=== PATIENT | male | born 1990 | race Caucasian/White ===

== ENCOUNTER 2016-08-27 18:31 | Emergency (ER) | payer SELFPAY ==
[2016-08-27 19:33] VITALS: BP 127/72
== END 2016-08-27 19:33 | disposition home or self-care (01) ==
LOC: ED 18:31
DX: L30.9 Dermatitis, unspecified (principal)

== ENCOUNTER 2016-08-29 01:51 | Emergency (ER) | payer SELFPAY ==
[2016-08-29 04:14] LABS: BASOPHIL % 0.5 % (0-2); PLATELET COUNT 248 x10^3mcL (130-400); RED CELL DISTRIBUTION WIDTH 13.7 % (11.5-14.5)
[2016-08-29 04:30] LABS: CALCIUM 9.2 mg/dL (8.5-10.1); CARBON DIOXIDE 33.9 mmol/L (21-32); CHLORIDE SERUM 105 mmol/L (98-107); CREATININE SERUM 1.1 mg/dL (0.7-1.3); GFR1 > 60 mL/min; GLUCOSE SERUM 90 mg/dL (74-106); POTASSIUM SERUM 4.7 mmol/L (3.5-5.1); SODIUM SERUM 144 mmol/L (136-145)
[2016-08-29 04:36] LABS: ALBUMIN 4.4 g/dL (3.4-5.0); ALKALINE PHOSPHATASE 67 U/L (46-116); ALT/SGPT 23 U/L (16-63); AST/SGOT 14 U/L (15-37); BILIRUBIN TOTAL 0.4 mg/dL (0.20-1.00); TOTAL PROTEIN, SERUM 6.9 g/dL (6.4-8.2)
[2016-08-29 05:24] VITALS: BP 127/75
== END 2016-08-29 05:25 | disposition home or self-care (01) ==
LOC: ED 01:51
PROVIDERS: Emergency Medicine
DX: R19.7 Diarrhea, unspecified (principal)